=== PATIENT | male | born 2005 | race Caucasian/White ===

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

== ENCOUNTER 2024-01-20 19:34 | Emergency (ER) | payer OTHER ==
[2024-01-20] MEDS ORDERED: Doxycycline Monohydrate 100 MG CAP PO ONE (20:15)
[2024-01-20 20:22] VITALS: BP 160/92
== END 2024-01-20 20:22 | disposition home or self-care (01) ==
LOC: ED 19:34
DX: S90.862A Insect bite (nonvenomous), left foot, initial encounter (principal); R11.2 Nausea with vomiting, unspecified; R42 Dizziness and giddiness; I10 Essential (primary) hypertension; W57.XXXA Bitten or stung by nonvenomous insect and other nonvenomous arthropods, initial encounter

== ENCOUNTER → 2024-03-10 | Outpatient (CLI) | payer OTHER ==
[2024-03-10 08:39] LABS: CALCIUM 9.6 mg/dL (8.3-10.5)
== END ==
LOC: LAB 08:24
PROVIDERS: Family Medicine
DX: I10 Essential (primary) hypertension (principal)

== ENCOUNTER 2024-05-10 23:53 | Emergency (ER) | payer OTHER ==
[2024-05-11] MEDS ORDERED: VIBRAMYCIN HYC100 MG PO (00:33)
[2024-05-11 00:44] VITALS: BP 160/90
[2024-05-11] MEDS ORDERED: Doxycycline Monohydrate 100 MG CAP PO ONE (00:45)
== END 2024-05-11 00:44 | disposition home or self-care (01) ==
LOC: ED 23:53
DX: L02.412 Cutaneous abscess of left axilla (principal)

== ENCOUNTER 2024-07-04 16:06 | Emergency (ER) | payer OTHER ==
[~2024-07-04] VITALS: Ht 182.9 cm; Wt 172.7 kg
[2024-07-04] MEDS ORDERED: LISINOPRIL20 MG PO (16:37)
[2024-07-04 17:01] LABS: BASO # 0.06 K/mm3 (0.02-0.10); EOS # 0.06 K/mm3 (0.04-0.40); EOS % 0.8 % (0.0-4.0); HEMATOCRIT 47.3 % (36.0-47.0); HEMOGLOBIN 15.8 g/dL (12.5-16.1); LYMPH# 2.08 K/mm3 (1.50-4.00); MEAN CELL VOLUME 82 fl (78-95); MEAN CORPUSCULAR HEMOGLOBIN 28 pg (26-32); MEAN CORPUSCULAR HGB CONC 33 g/dL (33-37); MEAN PLATELET VOLUME 10.2 fl (7.4-10.4); MONO # 0.48 K/mm3 (0.20-0.80); NEU # 5.16 K/mm3 (1.40-6.50); PLATELET COUNT 325 K/mm3 (130-400); RED BLOOD COUNT 5.75 M/mm3 (4.20-5.60); RED CELL DISTRIBUTION WIDTH 12.9 % (11.5-14.5); WHITE BLOOD COUNT 7.9 K/mm3 (4.8-10.8)
[2024-07-04 17:07] LABS: ALBUMIN 4.5 g/dL (3.5-5.0)
[2024-07-04 17:08] LABS: SODIUM 138 mmol/L (136-145)
[2024-07-04 17:09] LABS: CALCIUM 9.5 mg/dL (8.3-10.5)
[2024-07-04 17:10] LABS: GLUCOSE 87 mg/dL (75-110); TOTAL PROTEIN 8.1 g/dL (6.4-8.3)
[2024-07-04 17:11] LABS: CARBON DIOXIDE 23 mmol/L (22-29)
[2024-07-04 17:12] LABS: TOTAL BILIRUBIN 0.9 mg/dL (0.2-1.2)
[2024-07-04 17:15] LABS: AST-SGOT 16 U/L (5-34)
[2024-07-04 17:16] LABS: ALT/SGPT 23 U/L (0-55)
[2024-07-04 17:23] LABS: TROPONIN-I < 0.030 ng/mL (0.00-0.033)
[2024-07-04 18:00] VITALS: BP 126/67
== END 2024-07-04 18:00 | disposition home or self-care (01) ==
LOC: ED 16:06
PROVIDERS: Physician Assistant
DX: I10 Essential (primary) hypertension (principal); Z82.49 Family history of ischemic heart disease and other diseases of the circulatory system